=== PATIENT | female | born 1950 | race Caucasian/White ===

== ENCOUNTER → 2019-09-01 | Outpatient (CLI) | payer MEDICARE, BC ==
--- NOTE | 2019-09-01 14:52 | BD ---
EXAMINATION TYPE: Axial Bone Density DATE OF EXAM: 09/01/2019 COMPARISON: NONE CLINICAL HISTORY: 69 YR OLD FEMALE....ICD-10 CODE: M89.9 DISORDER OF BONE Height: 65.2 Weight: 246 FRAX RISK QUESTIONS: Secondary Osteoporosis: YES 3. Menopause before 45: YES, AT AGE 37 RISK FACTORS HISTORY OF: Family History of Osteoporosis: NO Postmenopausal woman: YES, HYST AT 37 YRS OLD Take estrogen and/or progesterone medications: IN PAST FOR ABOUT ONE YR Hyperparathyroidism: NO Adrenal Insufficiency: NO MEDICATIONS: Additional Medications: BP MEDS, ZANAX, ORAL DIABETIC MED, OZEMPIC, NEXIUM, MAGNESIUM, POTASSIUM Additional History: HYPERTENSION, DIABETIC, REFLUX EXAM MEASUREMENTS: Bone mineral densitometry was performed using the [employer] System. Bone mineral density as measured about the Lumbar spine is: ----- L1-L4(G/cm2): 1.189 T Score Values are as follows: ----- L1: -0.1 ----- L2: 0.7 ----- L3: -0.3 ----- L4: -0.1 ----- L1-L4: 0.1 Bone mineral density FIRST DEXA STUDY AT [facility] Bone mineral density about the R hip (g/cm2): 1.052 Bone mineral density about the L hip (g/cm2): 1.003 T Score values are as follows: -----R Neck: -0.7 -----L Neck: -1.5 -----R Total: 0.4 -----L Total: 0.0 Bone mineral density FIRST STUDY AT [facility] FRAX%s: THERE IS A 8.4% CHANCE FOR A MAJOR OSTEOPOROTIC FX AND A 1.0% FOR HIP.....PROBABILITY FOR F X IN 10 YRS TIME IMPRESSION: Osteopenia (T Score between -2.5 and -1). There is slightly increased risk of fracture and the patient may be considered for treatment. Re-Screen 2-5 years. NOTE: T-SCORE=SD OF THE YOUNG ADULT MEAN.
--- NOTE | 2019-09-04 11:18 | MM ---
Reason for exam: screening (asymptomatic). Last mammogram was performed 1 year and 9 months ago. History: Patient is postmenopausal. Took estrogen for 1 year. Physical Findings: A clinical breast exam by your physician is recommended on an annual basis and results should be correlated with mammographic findings. MG Screening Mammo w CAD Bilateral CC and MLO view(s) were taken. Prior study comparison: November 25, 2017, mammogram, performed at [facility]. February 11, 2016, mammogram, performed at [facility]. The breast tissue is heterogeneously dense. This may lower the sensitivity of mammography. Finding: There is a new architectural distortion in the upper quadrant, posterior position of the right breast near axilla on MLO view only. ASSESSMENT: Incomplete: need additional imaging evaluation, BI-RAD 0 RECOMMENDATION: Special view mammogram of the right breast. If lesion persists on supplemental views, image directed ultrasound is recommended. [facility] will attempt to contact patient to return for supplemental views and ultrasound if indicated.
== END | disposition home or self-care (01) ==
LOC: RADMAMWWP 12:39
PROVIDERS: ATTEND Internal Medicine
DX: Z12.31 Encounter for screening mammogram for malignant neoplasm of breast (principal); M85.88 Other specified disorders of bone density and structure, other site
CPT/HCPCS: 77067; 77080

== ENCOUNTER → 2019-09-08 | Outpatient (CLI) | payer MEDICARE, BC ==
--- NOTE | 2019-09-11 09:26 | MM ---
Reason for exam: additional evaluation requested from abnormal screening. Last mammogram was performed less than 1 month ago. History: Patient is postmenopausal. Took estrogen for 1 year. Physical Findings: Nurse did not find any significant physical abnormalities on exam. MG 3D Work Up W/Cad RT Spot compression CC and spot compression MLO view(s) were taken of the right breast. Prior study comparison: September 01, 2019, bilateral MG screening mammo w CAD. November 25, 2017, mammogram, performed at [facility]. There are scattered fibroglandular densities. No suspicious abnormality. Curvilinear right superior axillary density appears as nonenlarged lymph node. These results were verbally communicated with the patient and result sheet given to the patient on 09/08/19. ASSESSMENT: Benign, BI-RAD 2 RECOMMENDATION: Return to routine screening mammogram schedule for both breasts.
== END | disposition home or self-care (01) ==
LOC: RADMAMWWP 14:02
PROVIDERS: ATTEND Internal Medicine
DX: R92.8 Other abnormal and inconclusive findings on diagnostic imaging of breast (principal)
CPT/HCPCS: 77065; G0279; 77061

== ENCOUNTER → 2019-12-30 | Outpatient (CLI) | payer MEDICARE, BC ==
--- NOTE | 2019-12-30 07:36 | CT ---
EXAMINATION TYPE: CT brain wo con DATE OF EXAM: 12/30/2019 COMPARISON: NONE HISTORY: Dizziness, giddiness and headache x2 weeks. CT DLP: 1189 mGycm Automated exposure control for dose reduction was used. FINDINGS: Central structures are midline. There is no evidence of hydrocephalus. No acute focal lesion, mass ef fect or midline shift is identified. I do not see evidence of intracranial blood. Visualized portions of the paranasal sinuses and mastoids are clear. The bony calvarium is intact. IMPRESSION: NO ACUTE INTRACRANIAL ABNORMALITY.
== END | disposition home or self-care (01) ==
LOC: RADCTMAIN 07:04
PROVIDERS: ATTEND Internal Medicine
DX: R42 Dizziness and giddiness (principal)
CPT/HCPCS: 70450

== ENCOUNTER → 2020-07-24 | Outpatient (CLI) | payer MEDICARE, BC ==
[2020-07-24 19:49] LABS: Hemoglobin A1C 7.1 % (4.0-6.0)
[2020-07-24 22:49] LABS: African American GFR (CKD) 87.8 (60.0-200.0); Albumin 4.6 g/dL (3.80-4.90); Albumin/Globulin Ratio 1.92 (1.60-3.17); Anion Gap 13.3 mmol/L (4.00-12.00); BUN/Creat Ratio 16.25 Ratio (12.00-20.00); Calcium 9.7 mg/dL (8.7-10.3); Carbon Dioxide 23.7 mmol/L (21.6-31.8); Chol/HDL Ratio 6.17; Globulin 2.4 g/dL (1.6-3.3); LDL Cholesterol,Calculated 197.4 mg/dL (0.0-131.0); Non-African American GFR(CKD) 75.8 (60.0-200.0); Potassium 3.9 mmol/L (3.5-5.5); Total Bilirubin 0.6 mg/dL (0.2-1.2); VLDL Calculation 45.6 mg/dL (5.00-40.00)
[2020-07-24 23:45] LABS: Urine Creatinine 106.5 mg/dL
== END | disposition home or self-care (01) ==
LOC: LABWHC1 10:00
PROVIDERS: ATTEND Internal Medicine Endocrinology, Diabetes & Metabolism
DX: E11.65 Type 2 diabetes mellitus with hyperglycemia (principal)
CPT/HCPCS: 36415; 80053; 80061; 82043; 82570; 83036; 84443

== ENCOUNTER → 2020-11-12 | Outpatient (CLI) | payer MEDICARE, BC ==
[2020-11-12 19:20] LABS: Hemoglobin A1C 6.8 % (4.0-6.0)
[2020-11-12 19:58] LABS: African American GFR (CKD) 103.2 (60.0-200.0); Albumin 4.2 g/dL (3.80-4.90); Albumin/Globulin Ratio 1.62 (1.60-3.17); Anion Gap 11.5 mmol/L (4.00-12.00); BUN/Creat Ratio 22.86 Ratio (12.00-20.00); Calcium 9.2 mg/dL (8.7-10.3); Carbon Dioxide 23.5 mmol/L (21.6-31.8); Chol/HDL Ratio 6.93; Globulin 2.6 g/dL (1.6-3.3); LDL Cholesterol,Calculated 208.2 mg/dL (0.0-131.0); Potassium 4.3 mmol/L (3.5-5.5); Total Bilirubin 0.5 mg/dL (0.2-1.2); Total Protein 6.8 g/dL (6.2-8.2); VLDL Calculation 46.8 mg/dL (5.00-40.00)
[2020-11-13 01:58] LABS: Urine Creatinine 88.1 mg/dL
== END | disposition home or self-care (01) ==
LOC: LABWHC1 10:16
PROVIDERS: ATTEND Internal Medicine Endocrinology, Diabetes & Metabolism
DX: E11.65 Type 2 diabetes mellitus with hyperglycemia (principal)
CPT/HCPCS: 36415; 80053; 80061; 82043; 82570; 83036; 84443

== ENCOUNTER → 2021-06-13 | Outpatient (CLI) | payer MEDICARE, BC ==
[2021-06-13 15:57] LABS: ALT 95 U/L (8-44); AST 77 U/L (13-35); African American GFR (CKD) 102.5 (60.0-200.0); Albumin 4.2 g/dL (3.8-4.9); Albumin/Globulin Ratio 1.56 (1.60-3.17); Alkaline Phosphatase 117 U/L (41-126); BUN/Creat Ratio 16.57 Ratio (12.00-20.00); Blood Urea Nitrogen 11.6 mg/dL (9.0-27.0); Calcium 9.5 mg/dL (8.7-10.3); Carbon Dioxide 23.7 mmol/L (20.0-27.5); Chloride 99 mmol/L (96-109); Chol/HDL Ratio 8.29 Ratio; Globulin 2.7 g/dL (1.6-3.3); Glucose 174 mg/dL (70-110); LDL Cholesterol,Calculated 226.3 mg/dL (0.0-131.0); Non-African American GFR(CKD) 88.4 (60.0-200.0); Potassium 4.2 mmol/L (3.5-5.5); Sodium 137 mmol/L (135-145); Total Protein 6.8 g/dL (6.2-8.2)
[2021-06-14 05:21] LABS: Microalbumin Creatinine Ratio <30 mg/g Creat (0-30)
== END | disposition home or self-care (01) ==
LOC: LABWHC1 10:13
PROVIDERS: ATTEND Internal Medicine Endocrinology, Diabetes & Metabolism
DX: E11.65 Type 2 diabetes mellitus with hyperglycemia (principal)
CPT/HCPCS: 36415; 80053; 80061; 82043; 82570; 83036; 84443

== ENCOUNTER → 2021-11-27 | Outpatient (CLI) | payer MEDICARE, BC ==
--- NOTE | 2021-11-27 17:48 | P.PN ---
Subjective Progress Note Date: 11/27/21 Tari is a 71 year old white female seen in consultation for Dr. Jacques regarding cellular atypia on an ultrasound guided right breast core biopsy. She had a bilateral mammogram on 07-07-21 followed by a right breast ultrasound and biopsy on 08-27-21. The specimen from the biopsy showed atypia. She had a tumor taken out of her right axilla about 12 years ago and now feels some fatty tissue in the area. She does not feel any lumps masses or nodules of concern in either breast. No recent trauma or infection. No pain in her breast. No nipple discharge or skin changes. NO surgeries on her breast. The ultrasound-guided right breast core results were reviewed by our pathologist on and confirmed atypical cells. 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 Medical history: DM HTN anxiety Social History: Nicotine: Negative Alcohol: Negative Drugs:none - Constitutional Constitutional: Denies chills, Denies fever - EENT Eyes: bilateral as per HPI Ears: bilateral: tinnitus, deny: decreased hearing Ears, nose, mouth and throat: Denies headache, Denies sore throat - Breasts Breasts: bilateral: as per HPI - Cardiovascular Cardiovascular: Denies chest pain, Denies shortness of breath - Respiratory Comment: COVID cough Respiratory: Reports cough - Gastrointestinal Gastrointestinal: Denies abdominal pain, Denies diarrhea, Denies nausea, Denies vomiting - Genitourinary (Female) Genitourinary: Denies dysuria, Denies hematuria - Menstruation Menstruation: Reports postmenopausal - Musculoskeletal Musculoskeletal: Reports myalgias - Integumentary Comment: feet hurt Integumentary: Reports pruritus, Reports rash - Neurological Comment: neuropathy of feet - Psychiatric Psychiatric: Reports anxiety - Endocrine Comment: diabetes - Hematologic/Lymphatic Comment: baby aspirin - Allergic/Immunologic Allergic/Immunologic: Reports seasonal allergies Objective - Constitutional General appearance: Present: cooperative - EENT Eyes: Present: EOMI ENT: Present: hearing grossly normal - Neck Neck: Present: normal ROM - Respiratory Respiratory: bilateral: CTA - Cardiovascular Heart sounds: normal: S1, S2 - Gastrointestinal General gastrointestinal: Present: soft - Integumentary Integumentary: Present: normal turgor - Musculoskeletal Musculoskeletal: Present: gait normal - Psychiatric Psychiatric: Present: A&O x's 3, appropriate affect, intact judgment & insight - Additional findings Additional findings: Breast examination: BRA: Extra-large Inspection: Bilateral grade 3 ptosis Palpation: Right breast: Multi-positional exam fibrocystic changes no dominant masses or not his of concern Right axilla: No adenopathy of concern Left breast: Multiple positional exam no dominant mass or nodule is of concern Left axilla: No adenopathy of concern breast examination was from [facility] Assessment and Plan Assessment: Impression: Right breast atypical cells on core biopsy/aspiration Plan: Needle localization and lumpectomy with optical plastic tissue transfer Risk and benefits of the procedure discussed with the patient she understands and wishes to proceed. Cc: Dr. Jacques
== END ==
LOC: WWCWWP 18:16
PROVIDERS: ATTEND Surgery
DX: R92.8 Other abnormal and inconclusive findings on diagnostic imaging of breast (principal); E11.9 Type 2 diabetes mellitus without complications; I10 Essential (primary) hypertension; F41.9 Anxiety disorder, unspecified; Z88.5 Allergy status to narcotic agent

== ENCOUNTER 2021-12-09 09:12 | Day surgery (SDC) | payer MEDICARE, BC ==
[2021-12-08 11:12] VITALS: BMI 38.7
[~2021-12-09 09:12] MED LIST: DEXAMETHASONE SOD PHOSPHATE 4 MG/ML 1 ML VIAL IV ONE; HEPARIN SODIUM,PORCINE/PF 5,000 UNIT/0.5 ML SYRINGE SQ PRN; LACTATED RINGERS 1,000 ML IV SCH; LIDOCAINE 1% (10MG/ML) FOR IV START INTRADERMA PRN; ONDANSETRON 4 MG/2 ML VIAL IVP ONE; Pre Op ABX Message 1 EACH MISC MISCELLANE ONE; fentaNYL (PF) 50 MCG/ML 2 ML AMP IV PRN
[2021-12-09 10:39] LABS: Glucose,Whole Blood 142 mg/dL (75-99)
[2021-12-09] MEDS ORDERED: LIDOCAINE 1% INJ 10MG/ML (20 ML MDV) SQ ONE (12:04)
[2021-12-09 13:19] LABS: Glucose,Whole Blood 177 mg/dL (75-99)
[2021-12-09] MEDS ORDERED: PROPOFOL 10 MG/ML 20 ML VIAL IV ONE (15:27)
[2021-12-09] MEDS ORDERED: fentaNYL (PF) 50 MCG/ML 2 ML AMP ONE (15:27)
[2021-12-09] MEDS ORDERED: MIDAZOLAM 2 MG/2 ML VIAL ONE (15:27)
[2021-12-09] MEDS ORDERED: KETOROLAC 15 MG/ML 1 ML VIAL ONE (15:27)
[2021-12-09] MEDS ORDERED: LIDOCAINE 2% INJ 20 MG/ML (2 ML VIAL) ONE (15:27)
[2021-12-09] MEDS ORDERED: SUCCINYLCHOLINE CHLORIDE 100 MG/5 ML SYR IV ONE (15:27)
[2021-12-09] MEDS ORDERED: SODIUM CHLORIDE 0.9% 100 ML with ceFAZolin 1 GM IV ONE ×2 (15:50)
[2021-12-09] MEDS ORDERED: LIDOCAINE 0.5% (PF) 5 MG/ML (50 ML SDV) SQ ONE ×2 (15:58→16:15)
[2021-12-09] MEDS ORDERED: LACTATED RINGERS 1,000 ML IV ONE (16:10)
--- NOTE | 2021-12-09 16:10 | P.OP ---
Date of Procedure: 12/09/21 Preoperative Diagnosis: Biopsy right breast percutaneous with atypia Postoperative Diagnosis: Same Procedure(s) Performed: needle Localization excisional lumpectomy right breast Anesthesia: TABITHAA Surgeon: Uma Blackburn Estimated Blood Loss (ml): 3 IV fluids (ml): 500 Pathology: other (breast tissue) Condition: stable Disposition: same day Indications for Procedure: Percutaneous biopsy atypia right breast Operative Findings: Fibrofatty breast tissue Description of Procedure: Following localization of area of concern in the right breast the patient was brought to the operative suite. Following induction of anesthesia the right breast was prepped and draped in a sterile fashion. Wide excision was performed around the area of the hook of the needle. The specimen was painted for orientation. Radiograph revealed the area of concern had been removed. Titanium clips were placed in the lumpectomy cavity. The tissues were closed using 3-0 Vicryl suture. The subcutaneous tissue was closed using 3-0 Vicryl suture. 4-0 Monocryl subcuticular suture was placed. The patient tolerated the procedure in stable condition. All instrument and sponge counts were correct at the end of the case.
--- NOTE | 2021-12-09 16:11 | P.DS ---
Providers Attending physician: Uma Blackburn Primary care physician: Honey Jacques Plan - Discharge Summary Discharge Rx Participant: No New Discharge Prescriptions: No Action Amitriptyline HCl [Elavil] 25 mg PO HS Metoprolol Succinate (ER) [Toprol Xl] 50 mg PO BID Glimepiride [Amaryl] 4 mg PO AC-BRKFST lisinopriL 2.5 mg PO DAILY Semaglutide [Ozempic] 0.5 mg SQ WEEKLY Potassium Otc (Unknown Dose) 1 dose PO DAILY Magnesium 250 mg PO DAILY Calcium Carbonate/Vitamin D3 [Calcium 500 mg Chewable Tablet] 1 tab PO DAILY ALPRAZolam [Xanax] 0.25 mg PO TID PRN PRN Reason: Anxiety metFORMIN HCL 500 mg PO ONCE PRN PRN Reason: cbg above 250 Ibuprofen 600 mg PO DIRECTED PRN PRN Reason: Pain Cholecalciferol [Vitamin D3 (25 Mcg = 1000 Iu)] 50 mcg PO DAILY Spironolact/Hydrochlorothiazid [Aldactazide 25-25 MG] 0.5 each PO DAILY metFORMIN HCL [Glucophage] 500 mg PO BID Esomeprazole Magnesium [NexIUM 24Hr] 20 mg PO Q2D Aspirin [Adult Low Dose Aspirin EC] 81 mg PO DAILY Discharge Medication List ALPRAZolam [Xanax] 0.25 mg PO TID PRN 12/08/21 [History] Amitriptyline HCl [Elavil] 25 mg PO HS 12/08/21 [History] Aspirin [Adult Low Dose Aspirin EC] 81 mg PO DAILY 12/08/21 [History] Calcium Carbonate/Vitamin D3 [Calcium 500 mg Chewable Tablet] 1 tab PO DAILY 12/08/21 [History] Cholecalciferol [Vitamin D3 (25 Mcg = 1000 Iu)] 50 mcg PO DAILY 12/08/21 [History] Esomeprazole Magnesium [NexIUM 24Hr] 20 mg PO Q2D 12/08/21 [History] Glimepiride [Amaryl] 4 mg PO AC-BRKFST 12/08/21 [History] Ibuprofen 600 mg PO DIRECTED PRN 12/08/21 [History] Magnesium 250 mg PO DAILY 12/08/21 [History] Metoprolol Succinate (ER) [Toprol Xl] 50 mg PO BID 12/08/21 [History] Potassium Otc (Unknown Dose) 1 dose PO DAILY 12/08/21 [History] Semaglutide [Ozempic] 0.5 mg SQ WEEKLY 12/08/21 [History] Spironolact/Hydrochlorothiazid [Aldactazide 25-25 MG] 0.5 each PO DAILY 12/08/21 [History] lisinopriL 2.5 mg PO DAILY 12/08/21 [History] metFORMIN HCL 500 mg PO ONCE PRN 12/08/21 [History] metFORMIN HCL [Glucophage] 500 mg PO BID 12/08/21 [History] Follow up Appointment(s)/Referral(s): Uma Blackburn MD [STAFF PHYSICIAN] - 1 Week Patient Instructions/Handouts: *Surgery [facility] - Anesthesia Discharge Instructions, Surgical Breast Biopsy (DC), Breast Lumpectomy (DC) Activity/Diet/Wound Care/Special Instructions: do not drive for 24 hours from discharge may shower after 48 hours wear bra at all times Discharge Disposition: HOME SELF-CARE
[2021-12-09 16:43] VITALS: TEMP 97.7
[2021-12-09 16:43] LABS: Glucose,Whole Blood 186 mg/dL (75-99)
[2021-12-09 17:15] VITALS: RESP 18
[2021-12-09 17:34] VITALS: BP 138/66; PULSE 91
== END 2021-12-09 17:52 | disposition home or self-care (01) ==
LOC: OR 09:12
PROVIDERS: ATTEND Surgery
DX: N60.91 Unspecified benign mammary dysplasia of right breast (principal); Z79.82 Long term (current) use of aspirin; D24.1 Benign neoplasm of right breast; Z79.84 Long term (current) use of oral hypoglycemic drugs; Z79.899 Other long term (current) drug therapy
CPT/HCPCS: 19281; 19301; 88307; 76098; C1819; J2250; J1100; J0690; J2405; J2001 ×3; J3010; J1885; J0330; J2704; J1644

== ENCOUNTER → 2021-12-18 | Outpatient (CLI) | payer MEDICARE, BC ==
[2021-12-18 15:43] VITALS: BP 127/79; PULSE 96; RESP 16; TEMP 97.9
--- NOTE | 2021-12-18 16:07 | P.PN ---
Progress Note - Text Progress Note Date: 12/18/21 Tari is status post needle localization and resection of a lesion in the right breast. The pathology was benign. The procedure was done on 12-09-21. Physical exam: Incision clean and dry Lungs: Clear Heart: Regular rate and rhythm Impression: Patient with benign breast tissue right breast from biopsy Plan: Right breast mammogram 6 months with physician exam at that time CC: Dr. Honey Jacques
== END ==
LOC: WWCWWP 14:56
PROVIDERS: ATTEND Surgery
DX: D24.1 Benign neoplasm of right breast (principal); Z88.5 Allergy status to narcotic agent

== ENCOUNTER → 2022-01-17 | Outpatient (CLI) | payer MEDICARE, BC ==
[2022-01-17 11:41] LABS: ALT 109 U/L (8-44); AST 71 U/L (13-35); African American GFR (CKD) 87.2 (60.0-200.0); Albumin 4.3 g/dL (3.8-4.9); Alkaline Phosphatase 118 U/L (41-126); BUN/Creat Ratio 16.25 Ratio (12.00-20.00); Calcium 9.6 mg/dL (8.7-10.3); Carbon Dioxide 28.3 mmol/L (20.0-27.5); Chloride 97 mmol/L (96-109); Chol/HDL Ratio 7.36 Ratio; Globulin 3.3 g/dL (1.6-3.3); Glucose 179 mg/dL (70-110); LDL Cholesterol,Calculated 188.8 mg/dL (0.0-131.0); Non-African American GFR(CKD) 75.2 (60.0-200.0); Potassium 4.6 mmol/L (3.5-5.5); Sodium 137 mmol/L (135-145); Total Protein 7.6 g/dL (6.2-8.2)
== END | disposition home or self-care (01) ==
LOC: LABWHC1 08:44
PROVIDERS: ATTEND Internal Medicine Endocrinology, Diabetes & Metabolism
DX: E11.65 Type 2 diabetes mellitus with hyperglycemia (principal)
CPT/HCPCS: 36415; 80053; 80061; 83036

== ENCOUNTER → 2022-04-27 | Outpatient (CLI) | payer MEDICARE, BC ==
[2022-04-27 16:17] LABS: ALT 116 U/L (8-44); AST 78 U/L (13-35); African American GFR (CKD) 86.6 (60.0-200.0); Albumin 4.3 g/dL (3.8-4.9); Albumin/Globulin Ratio 1.48 (1.60-3.17); Alkaline Phosphatase 116 U/L (41-126); BUN/Creat Ratio 16.38 Ratio (12.00-20.00); Blood Urea Nitrogen 13.1 mg/dL (9.0-27.0); Calcium 9.6 mg/dL (8.7-10.3); Carbon Dioxide 27.7 mmol/L (20.0-27.5); Chloride 98 mmol/L (96-109); Globulin 2.9 g/dL (1.6-3.3); Glucose 154 mg/dL (70-110); Non-African American GFR(CKD) 74.7 (60.0-200.0); Potassium 4.6 mmol/L (3.5-5.5); Sodium 138 mmol/L (135-145); Total Protein 7.2 g/dL (6.2-8.2)
[2022-04-27 16:18] LABS: Chol/HDL Ratio 6.83 Ratio; LDL Cholesterol,Calculated 221.4 mg/dL (0.0-131.0)
[2022-04-27 19:31] LABS: Microalbumin Creatinine Ratio <30 mg/g Creat (0-30)
== END | disposition home or self-care (01) ==
LOC: LABWHC1 10:53
PROVIDERS: ATTEND Internal Medicine Endocrinology, Diabetes & Metabolism
DX: E11.65 Type 2 diabetes mellitus with hyperglycemia (principal)
CPT/HCPCS: 36415; 80053; 80061; 82043; 82570; 83036; 84443

== ENCOUNTER → 2022-06-15 | Outpatient (CLI) | payer MEDICARE, BC ==
--- NOTE | 2022-06-15 13:55 | MM ---
Reason for Exam: Follow-up at short interval from prior study. Last mammogram was performed 2 year(s) and 10 month(s) ago. Patient History: Menarche at age 15. First Full-Term at age 19. Hysterectomy at age 32. Postmenopausal. Patient used Estrogen for 1 year. 12/09/2021, Benign MG pre op needle loc RT on the right side. Risk Values: Kriss 5 year model risk: 1.5%. NCI Lifetime model risk: 4.3%. Prior Study Comparison: 02/11/2016 Screening Mammogram, [facility]. 11/25/2017 Screening Mammogram, [facility]. 09/01/2019 Bilateral Screening Mammogram, [facility]. 09/08/2019 Right Diagnostic Mammogram, [facility]. Tissue Density: Right: The breast tissue is heterogeneously dense. This may lower the sensitivity of mammography. Findings: Analyzed By CAD. Biopsy clips in the right breast. No suspicious masses or calcifications. There is a nodular density in the right breast that does not persist on 3-D imaging. No suspicious distortions. Overall Assessment: Benign, BI-RAD 2 Management: Screening Mammogram of both breasts in 1 year. A clinical breast exam by your physician is recommended on an annual basis and results should be correlated with mammographic findings. This exam should not preclude additional follow-up of suspicious palpable abnormalities. Results were given to the patient verbally at the time of exam. Electronically signed and approved by: Danny Shah DO
== END | disposition home or self-care (01) ==
LOC: RADMAMWWP 13:13
PROVIDERS: ATTEND Surgery
DX: R92.8 Other abnormal and inconclusive findings on diagnostic imaging of breast (principal); Z78.0 Asymptomatic menopausal state
CPT/HCPCS: 77065; G0279; 77061

== ENCOUNTER → 2022-06-19 | Outpatient (CLI) | payer MEDICARE, BC ==
[2022-06-19 14:59] VITALS: BP 100/64; PULSE 76; RESP 18; TEMP 97.9
--- NOTE | 2022-06-19 15:13 | P.PN ---
Subjective Progress Note Date: 06/19/22 Principal diagnosis: fibrocystic breast changes atypical cells on core biopsy of right breast Tari is a 71 year old white female seen in consultation for Dr. Jacques regarding cellular atypia on an ultrasound guided right breast core biopsy. She had a bilateral mammogram on 07-07-21 followed by a right breast ultrasound and biopsy on 08-27-21. The specimen from the biopsy showed atypia. She had a tumor taken out of her right axilla about 12 years ago and now feels some fatty tissue in the area. She does not feel any lumps masses or nodules of concern in either breast. No recent trauma or infection. No pain in her breast. No nipple discharge or skin changes. Needle localization and resection of the right breast on 12-18-21 which was benign. The patient was complaining of some aching in the left breast in the upper outer quadrant region after putting a Wesly tree lights. She states that that is decreased now. She does not feel any new lumps masses or not his of contracture concern otherwise. She had a right breast mammogram done on 12110806 which was benign BIRADS 2. 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 Medical history: DM HTN anxiety Social History: Nicotine: Negative Alcohol: Negative Drugs:none - Constitutional Constitutional: Denies chills, Denies fever - EENT Eyes: bilateral as per HPI Ears: bilateral: tinnitus, deny: decreased hearing Ears, nose, mouth and throat: Denies headache, Denies sore throat - Breasts Breasts: bilateral: as per HPI - Cardiovascular Cardiovascular: Denies chest pain, Denies shortness of breath - Respiratory Comment: COVID cough Respiratory: Reports cough - Gastrointestinal Gastrointestinal: Denies abdominal pain, Denies diarrhea, Denies nausea, Denies vomiting - Genitourinary (Female) Genitourinary: Denies dysuria, Denies hematuria - Menstruation Menstruation: Reports postmenopausal - Musculoskeletal Musculoskeletal: Reports myalgias - Integumentary Comment: feet hurt Integumentary: Reports pruritus, Reports rash - Neurological Comment: neuropathy of feet - Psychiatric Psychiatric: Reports anxiety - Endocrine Comment: diabetes - Hematologic/Lymphatic Comment: baby aspirin - Allergic/Immunologic Allergic/Immunologic: Reports seasonal allergies Past Medical History Past Medical History: Diabetes Mellitus, Hypertension History of Any Multi-Drug Resistant Organisms: None Reported Past Surgical History: Hysterectomy, Tonsillectomy Additional Past Surgical History / Comment(s): LAPBAND Past Anesthesia/Blood Transfusion Reactions: No Reported Reaction Past Psychological History: Anxiety Smoking Status: Never smoker Past Alcohol Use History: None Reported Past Drug Use History: None Reported Medications and Allergies Home Medications Medication Instructions Recorded Confirmed Type Calcium Carb/Mag Ox/Zinc Sulf 1 tab PO DAILY 10/09/21 10/09/21 History [[id number]-[id number] 334-134-5 mg Tab] Cholecalciferol [Vitamin D3 (25 25 mcg PO DAILY 10/09/21 10/09/21 History Mcg = 1000 Iu)] Cyanocobalamin [Vitamin B-12 1,000 ml SQ DIRECTED 10/09/21 10/09/21 History Injection] Esomeprazole Magnesium [NexIUM] 20 mg PO DAILY 10/09/21 10/09/21 History Magnesium 200 mg PO DAILY 10/09/21 10/09/21 History Allergies Allergy/AdvReac Type Severity Reaction Status Date / Time codeine Allergy Confusion Unverified 10/09/21 13:11 Objective - Vital Signs Vital signs: Vital Signs Temp 97.9 F 06/19/22 14:54 Pulse 76 06/19/22 14:54 Resp 18 06/19/22 14:54 BP 100/64 06/19/22 14:54 Pulse Ox 91 L 06/19/22 14:54 FiO2 Intake & Output 06/18/22 06/19/22 06/19/22 18:59 06:59 18:59 Weight 106.594 kg - Exam BMI: 37.9 - Constitutional General appearance: Present: cooperative - EENT Eyes: Present: EOMI ENT: Present: hearing grossly normal - Neck Neck: Present: normal ROM - Respiratory Respiratory: bilateral: CTA - Cardiovascular Rhythm: regular Heart sounds: normal: S1, S2 - Gastrointestinal General gastrointestinal: Present: soft - Integumentary Integumentary: Present: normal turgor - Musculoskeletal Musculoskeletal: Present: gait normal - Psychiatric Psychiatric: Present: A&O x's 3, appropriate affect, intact judgment & insight - Additional findings Additional findings: Breast Exam: BRA: X-Large insepction: grade 3 ptosis bilateral, palpation: right breast: Multi-positional exam fibrocystic changes no dominant masses or nodules of concern Right axilla: Prior surgery, no dominant masses or nodules of concern Left breast: Multi-positional exam fibrocystic changes no dominant masses or nodules of concern; slight increased nodularity upper outer quadrant region approximately 2:30 on the chest wall Left axilla: No adenopathy of concern Assessment and Plan Assessment: Impression: Bilateral fibrocystic breast changes Slight increased nodularity left breast in the upper outer quadrant region on the chest wall Recent right breast mammogram [id number] benign BIRADS 2 Plan: Ultrasound area of concern on the left chest wall Bilateral mammogram in 6 months with Follow up after ultrasound of the left chest wall Cc: Dr. Jacques
--- NOTE | 2022-06-19 15:47 | USB ---
Reason for Exam: Clinical finding. Patient History: Menarche at age 15. First Full-Term at age 19. Hysterectomy at age 32. Postmenopausal. Patient used Estrogen for 1 year. 12/09/2021, Benign MG pre op needle loc RT on the right side. Risk Values: Kriss 5 year model risk: 1.5%. NCI Lifetime model risk: 4.3%. Technique: Method: Targeted. Prior Study Comparison: 09/01/2019 Bilateral Screening Mammogram, [facility]. 09/08/2019 Right Diagnostic Mammogram, [facility]. 06/15/2022 Right MG 3D diag mammo w/cad RT, [facility]. Findings: The upper section of the breast of the left breast, the axilla of the left breast and the retroareolar of the left breast were scanned. Targeted ultrasound left breast no worrisome solid or cystic mass or fluid collection on images saved. There is benign appearing left axillary lymph node seen towards end of study.. Overall Assessment: Negative, BI-RAD 1 Management: Screening Mammogram of the left breast in 1 month. Patient is due for left breast mammogram in 1 month. Results were given to the patient verbally at the time of exam. Electronically signed and approved by: Robin Macias M.D.
== END ==
LOC: WWCWWP 14:12
PROVIDERS: ATTEND Surgery
DX: N60.11 Diffuse cystic mastopathy of right breast (principal); N60.12 Diffuse cystic mastopathy of left breast; Z88.5 Allergy status to narcotic agent

== ENCOUNTER → 2022-07-24 | Outpatient (CLI) | payer MEDICARE, BC ==
--- NOTE | 2022-07-24 14:40 | MM ---
Reason for Exam: Hx of benign breast biopsy. Last mammogram was performed 2 year(s) and 11 month(s) ago. Patient History: Menarche at age 15. First Full-Term at age 19. Hysterectomy at age 32. Postmenopausal. Patient used Estrogen for 1 year. 12/09/2021, Benign MG pre op needle loc RT on the right side. Risk Values: Kriss 5 year model risk: 1.5%. NCI Lifetime model risk: 4.3%. Prior Study Comparison: 09/01/2019 Bilateral Screening Mammogram, [facility]. 09/08/2019 Right Diagnostic Mammogram, [facility]. 06/15/2022 Right MG 3D diag mammo w/cad RT, [facility]. Tissue Density: Left: The breast tissue is heterogeneously dense. This may lower the sensitivity of mammography. Findings: Analyzed By CAD. No new suspicious mass or worrisome calcifications identified. No significant change from prior examination. Overall Assessment: Negative, BI-RAD 1 Management: Screening Mammogram of both breasts in 1 year. A clinical breast exam by your physician is recommended on an annual basis and results should be correlated with mammographic findings. This exam should not preclude additional follow-up of suspicious palpable abnormalities. Results were given to the patient verbally at the time of exam. Electronically signed and approved by: Emanuel Tang D.O.
--- NOTE | 2022-07-24 15:11 | P.PN ---
Progress Note - Text Progress Note Date: 07/24/22 Patient is not complaining of any lumps masses or nodules of concern in either breast. She had a right breast mammogram in [id number] which was benign BIRADS 2. She subsequently had some discomfort in her left chest wall after hanging Wesly tree lites and ultrasound was done on [id number] which was benign. She subsequently had a left breast mammogram and which was benign BIRADS 1. She had a breast examination in June 2022 which did not reveal any lumps masses or nodules of concern in either breast. Impression: Fibrocystic breast changes Plan: Bilateral mammogram in 1 year with physician exam at that time; she will follow with her primary care doctor unless she has any questions or concerns Cc: Dr. Jacques
== END | disposition home or self-care (01) ==
LOC: RADMAMWWP 14:11
PROVIDERS: ATTEND Surgery
DX: R92.8 Other abnormal and inconclusive findings on diagnostic imaging of breast (principal); Z78.0 Asymptomatic menopausal state; Z98.890 Other specified postprocedural states
CPT/HCPCS: 77065; G0279; 77061

== ENCOUNTER → 2022-07-24 | Outpatient (CLI) | payer MEDICARE, BC ==
[2022-07-24 14:56] VITALS: BP 118/72; PULSE 96; RESP 18; TEMP 97.6
== END ==
LOC: WWCWWP 14:10
PROVIDERS: ATTEND Surgery
DX: Z53.9 Procedure and treatment not carried out, unspecified reason (principal)

== ENCOUNTER → 2022-07-31 | Outpatient (CLI) | payer MEDICARE, BC ==
[2022-07-31 19:06] LABS: ALT 112 U/L (8-44); AST 78 U/L (13-35); African American GFR (CKD) 86.6 (60.0-200.0); Albumin 4.3 g/dL (3.8-4.9); Albumin/Globulin Ratio 1.54 (1.60-3.17); Alkaline Phosphatase 113 U/L (41-126); Blood Urea Nitrogen 14.4 mg/dL (9.0-27.0); Calcium 9.7 mg/dL (8.7-10.3); Carbon Dioxide 22.4 mmol/L (20.0-27.5); Chloride 96 mmol/L (96-109); Chol/HDL Ratio 6.62 Ratio; Globulin 2.8 g/dL (1.6-3.3); Glucose 159 mg/dL (70-110); LDL Cholesterol,Calculated 190.8 mg/dL (0.0-131.0); Non-African American GFR(CKD) 74.7 (60.0-200.0); Potassium 4.3 mmol/L (3.5-5.5); Sodium 135 mmol/L (135-145); Total Protein 7.1 g/dL (6.2-8.2)
== END | disposition home or self-care (01) ==
LOC: LABWHC1 10:33
PROVIDERS: ATTEND Internal Medicine Endocrinology, Diabetes & Metabolism
DX: E11.65 Type 2 diabetes mellitus with hyperglycemia (principal)
CPT/HCPCS: 36415; 80053; 80061; 82043; 82570; 83036; 84443

== ENCOUNTER → 2023-02-09 | Outpatient (CLI) | payer MEDICARE, BC ==
[2023-02-09 15:58] LABS: ALT 109 U/L (8-44); AST 68 U/L (13-35); Albumin 4.5 d/dL (3.8-4.9); Albumin/Globulin Ratio 1.61 Ratio (1.60-3.17); Alkaline Phosphatase 127 U/L (41-126); BUN/Creat Ratio 16.88 Ratio (12.00-20.00); Blood Urea Nitrogen 13.5 mg/dL (9.0-27.0); Carbon Dioxide 22.2 mmol/L (21.6-31.8); Chloride 100 mmol/L (96-109); Chol/HDL Ratio 6.61 Ratio; Globulin 2.8 d/dL (1.6-3.3); Glucose 159 mg/dL (70-110); Potassium 4.2 mmol/L (3.5-5.5); Sodium 137 mmol/L (135-145); Total Bilirubin 0.4 mg/dL (0.3-1.2); Total Protein 7.3 d/dL (6.2-8.2)
[2023-02-09 19:59] LABS: Microalbumin Creatinine Ratio <7 mg/g Cr (0-30)
== END | disposition home or self-care (01) ==
LOC: LABWHC1 11:15
PROVIDERS: ATTEND Internal Medicine Endocrinology, Diabetes & Metabolism
DX: E11.65 Type 2 diabetes mellitus with hyperglycemia (principal)
CPT/HCPCS: 36415; 80053; 80061; 82043; 82570; 84443

== ENCOUNTER → 2023-05-18 | Outpatient (CLI) | payer MEDICARE, BC ==
[2023-05-18 15:43] LABS: ALT 61 U/L (8-44); AST 38 U/L (13-35); Albumin 4.5 g/dL (3.8-4.9); Albumin/Globulin Ratio 1.67 Ratio (1.60-3.17); Alkaline Phosphatase 106 U/L (41-126); BUN/Creat Ratio 20.62 Ratio (12.00-20.00); Blood Urea Nitrogen 16.5 mg/dL (9.0-27.0); Calcium 9.9 mg/dL (8.7-10.3); Carbon Dioxide 26.3 mmol/L (21.6-31.8); Chloride 100 mmol/L (96-109); Chol/HDL Ratio 7.77 Ratio; Globulin 2.7 g/dL (1.6-3.3); Glucose 142 mg/dL (70-110); LDL Cholesterol,Calculated 227.6 mg/dL (0.0-131.0); Potassium 4.2 mmol/L (3.5-5.5); Sodium 139 mmol/L (135-145); Total Bilirubin 0.4 mg/dL (0.3-1.2); Total Protein 7.2 g/dL (6.2-8.2)
[2023-05-18 21:07] LABS: Microalbumin Creatinine Ratio <13 mg/g Cr (0-30); Urine Creatinine 90.1 mg/dL (28.0-217.0)
== END | disposition home or self-care (01) ==
LOC: LABWHC1 10:37
PROVIDERS: ATTEND Internal Medicine Endocrinology, Diabetes & Metabolism
DX: E11.65 Type 2 diabetes mellitus with hyperglycemia (principal)
CPT/HCPCS: 36415; 80053; 80061; 82043; 82570; 83036; 84443

== ENCOUNTER → 2023-08-02 | Outpatient (CLI) | payer MEDICARE, BC ==
--- NOTE | 2023-08-03 20:49 | MM ---
Reason for Exam: Screening (asymptomatic). Last mammogram was performed 3 year(s) and 11 month(s) ago. Patient History: Menarche at age 15. First Full-Term at age 19. Hysterectomy at age 32. Postmenopausal. Patient used Estrogen for 1 year. 12/09/2021, Benign MG pre op needle loc RT on the right side. Risk Values: Kriss 5 year model risk: 1.5%. NCI Lifetime model risk: 4.1%. Prior Study Comparison: 09/08/2019 Right Diagnostic Mammogram, [facility]. 06/15/2022 Right MG 3D diag mammo w/cad RT, [facility]. 07/24/2022 Left MG 3D diag mammo w/cad LT, [facility]. Tissue Density: There are scattered fibroglandular densities. Findings: Analyzed By CAD. Post surgical change on the right with stable adjacent grouped calcifications. Chronic nodularity inferior left breast. There is no suspicious group of microcalcifications or new suspicious mass in either breast. Overall Assessment: Benign, BI-RAD 2 Management: Screening Mammogram of both breasts in 1 year. . Patient should continue monthly self-breast exams. A clinical breast exam by your physician is recommended on an annual basis. This exam should not preclude additional follow-up of suspicious palpable abnormalities. Note on Kriss scores and lifetime risk: 1. A Kriss score greater than 3% is considered moderate risk. If this is the case, consider specialist referral to assess eligibility for a risk reducing agent. 2. If overall lifetime risk for the development of breast cancer is 20% or higher, the patient may qualify for future screening with alternating mammogram and breast MRI. Electronically signed and approved by: Acosta Page M.D. Radiologist
== END | disposition home or self-care (01) ==
LOC: RADMAMWWP 15:51
PROVIDERS: ATTEND Family Medicine
DX: Z12.31 Encounter for screening mammogram for malignant neoplasm of breast (principal); Z78.0 Asymptomatic menopausal state
CPT/HCPCS: 77063; 77067

== ENCOUNTER → 2023-08-18 | Outpatient (CLI) | payer MEDICARE, BC ==
[2023-08-18 15:52] LABS: ALT 67 U/L (8-44); AST 40 U/L (13-35); Albumin 4.5 g/dL (3.8-4.9); Albumin/Globulin Ratio 1.61 Ratio (1.60-3.17); Alkaline Phosphatase 108 U/L (41-126); Blood Urea Nitrogen 16.2 mg/dL (9.0-27.0); Calcium 10.1 mg/dL (8.7-10.3); Carbon Dioxide 26.5 mmol/L (21.6-31.8); Chloride 98 mmol/L (96-109); Chol/HDL Ratio 7.36 Ratio; Globulin 2.8 g/dL (1.6-3.3); Glucose 170 mg/dL (70-110); LDL Cholesterol,Calculated 235.3 mg/dL (0.0-131.0); Potassium 4.2 mmol/L (3.5-5.5); Sodium 139 mmol/L (135-145); Total Bilirubin 0.3 mg/dL (0.3-1.2); Total Protein 7.3 g/dL (6.2-8.2)
== END | disposition home or self-care (01) ==
LOC: LABWHC1 10:54
PROVIDERS: ATTEND Internal Medicine Endocrinology, Diabetes & Metabolism
DX: E11.65 Type 2 diabetes mellitus with hyperglycemia (principal)
CPT/HCPCS: 36415; 80053; 80061; 82043; 82570; 83036; 84443

== ENCOUNTER → 2023-09-08 | Outpatient (CLI) | payer MEDICARE, BC ==
--- NOTE | 2023-09-08 17:27 | BD ---
EXAMINATION TYPE: Axial Bone Density DATE OF EXAM: 09/08/2023 CLINICAL HISTORY: 73 years old Female. ICD-10 CODE: Z78.0 AYSMPTOMATIC MENOPAUSAL STATE Height: 65" Weight: 235lbs FRAX RISK QUESTIONS: Alcohol (3 or more units per day): No Family History (Parent hip fracture): No Glucocorticoids (More than 3mos): No (Ex: prednisone, prednisolone, methylprednisolone, dexamethasone, and hydrocortisone). History of Fracture in Adulthood: Yes Secondary Osteoporosis: 1. Type 1 Diabetes: No 2. Hyperthyroidism: No 3. Menopause before 45: Yes 4. Malnutrition: 5. Chronic liver disease: No Rheumatoid Arthritis: Unknown Current Tobacco Use: No RISK FACTORS HISTORY OF: Hip Fracture (Right/Left): No Spine Fracture: No History of Wrist Fracture: No Surgery to Spine/Hip(right/left)/Wrist (right/left): No MEDICATIONS: Thyroid Medications: No Osteoporosis Medications: No EXAM MEASUREMENTS: Bone mineral densitometry was performed using the [employer] System. Bone mineral density as measured about the Lumbar spine is: ----- L1-L4(G/cm2): 1.102 T Score Values are as follows: ----- L1: -0.6 ----- L2: -0.9 ----- L3: -1.1 ----- L4: -0.2 ----- L1-L4: -0.7 Z Score Values are as follows: ----- L1: -0.1 ----- L2: -0.4 ----- L3: -0.6 ----- L4: 0.3 ----- L1-L4: -0.1 Bone mineral density has: decreased -7.3% since study of: 09/01/2019 Bone mineral density about the R hip (g/cm2): 0.951 Bone mineral density about the L hip (g/cm2): 0.948 T Score values are as follows: -----R Neck: -1.8 -----L Neck: -1.3 -----R Total: -0.5 -----L Total: -0.5 Z Score values are as follows: -----R Neck: -0.8 -----L Neck: -0.3 -----R Total: 0.3 -----L Total: 0.2 Bone mineral density has: decreased -7.7% since study of: 09/01/2019 FRAX%s: The graph provided illustrates a 9.9% chance for a major osteoporotic fx and a 1.7% chance fo r the hips probability for fx in 10 years time. IMPRESSION: Osteopenia (T Score between -2.5 and -1). There is slightly increased risk of fracture and the patient may be considered for treatment. Re-Screen 2-5 years. NOTE: T-SCORE=SD OF THE YOUNG ADULT MEAN.
== END | disposition home or self-care (01) ==
LOC: RADBDWWP 13:08
PROVIDERS: ATTEND Family Medicine
DX: M85.89 Other specified disorders of bone density and structure, multiple sites (principal); Z78.0 Asymptomatic menopausal state
CPT/HCPCS: 77080

== ENCOUNTER → 2024-09-28 | Outpatient (CLI) | payer MEDICARE, BC ==
--- NOTE | 2024-09-28 15:33 | MM ---
Reason for Exam: Screening (asymptomatic). Last mammogram was performed 1 year(s) and 2 month(s) ago. Patient History: Menarche at age 15. First Full-Term at age 19. Hysterectomy at age 32. Postmenopausal. Patient used Estrogen for 1 year. 12/09/2021, Benign MG pre op needle loc RT on the right side. Risk Values: Kriss 5 year model risk: 1.5%. NCI Lifetime model risk: 3.9%. Prior Study Comparison: 06/15/2022 Right MG 3D diag mammo w/cad RT, [facility]. 07/24/2022 Left MG 3D diag mammo w/cad LT, [facility]. 08/02/2023 Bilateral MG 3D screening mammo w/cad, [facility]. Tissue Density: The breasts are heterogeneously dense, which may obscure small masses. Findings: Analyzed By CAD. There is no suspicious group of microcalcifications or new suspicious mass in either breast. Postsurgical change with biopsy clips right breast. Benign-appearing calcifications. The posterior outer lower left breast there is a 4 mm ulcer described chronic area of nodularity stable from prior exam. Overall Assessment: Benign, BI-RAD 2 Management: Screening Mammogram of both breasts in 1 year. . Patient should continue monthly self-breast exams. A clinical breast exam by your physician is recommended on an annual basis. This exam should not preclude additional follow-up of suspicious palpable abnormalities. Note on Kriss scores and lifetime risk: 1. A Kriss score greater than 3% is considered moderate risk. If this is the case, consider specialist referral to assess eligibility for a risk reducing agent. 2. If overall lifetime risk for the development of breast cancer is 20% or higher, the patient may qualify for future screening with alternating mammogram and breast MRI. [facility], , 09/28/2024 3:30 PM. Electronically signed and approved by: Jeremiah Odonnell M.D. Radiologis
== END | disposition home or self-care (01) ==
LOC: RADMAMWWP 15:06
PROVIDERS: ATTEND Family Medicine
DX: Z12.31 Encounter for screening mammogram for malignant neoplasm of breast (principal); R92.333 Mammographic heterogeneous density, bilateral breasts; Z78.0 Asymptomatic menopausal state
CPT/HCPCS: 77063; 77067